=== PATIENT | female | born 1945 | race Caucasian/White ===

== ENCOUNTER 2018-05-21 06:09 | Inpatient (IN) | payer OTHER, SELFPAY ==
[2018-05-15 13:58] VITALS: BMI 29.7
[2018-05-21] VITALS (13 sets, daily range): BP systolic 93–256; BP diastolic 45–98; PULSE 57–90; RESP 15–19; TEMP 36.3–36.9; O2SAT 97–99; BMI 29.7
--- NOTE | 2018-05-21 06:00 | DI.RAD.S_ITS ---
PROCEDURE: XR KNEE LT 1TO2V INDICATIONS: prosthesis placement TECHNIQUE: 2 view(s) of the knee acquired. COMPARISON: None. FINDINGS: Bones: Patient is status post knee joint arthroplasty. Hardware components are in expected positions. Visualized bony structures are intact. Soft tissues: Overlying postoperative changes are noted. IMPRESSION: Normal postoperative examination. Dictated by: Ace Valdez M.D. on 05/21/2018 at 9:44 Approved by: Ace Valdez M.D. on 05/21/2018 at 9:44
[2018-05-21] MEDS: ACETAMINOPHEN 325 MG TABLET 975 MG PO (06:46)
[2018-05-21] MEDS: CELECOXIB 200 MG CAPSULE PO (06:46)
[2018-05-21] MEDS: PREGABALIN 75 MG CAPSULE PO (06:46)
[2018-05-21] MEDS: LACTATED RINGERS 1,000 ML 42 ML IV (07:25)
--- NOTE | 2018-05-21 07:44 | PM.PREOP ---
Pre-operative Note Interval Note Pre-op Check: Yes History & Physical Reviewed by Physician and Yes Exam Performed Changes: No
--- NOTE | 2018-05-21 07:44 | PM.OP.1 ---
Operative Date/Time/Diagnoses Date of procedure: 05/21/18 Time of procedure: 09:30 Pre-op diagnosis: Left knee osteoarthritis Post-op diagnosis: same Procedure & Clinicians Procedure: Left total knee replacement Same procedure as scheduled: Yes Indications: The patient has had progressively worsening left knee pain with radiographic changes consistent with arthritis. Non-operative management has failed and the patient has requested total knee replacement. The risks, benefits and alternatives to surgery were discussed with the patient prior to proceeding. Risks discussed included, but were not limited to, failure to relieve pain, stiffness, infection, nerve damage, deep venous thrombosis, pulmonary embolism, stroke, coma, heart attack, permanent paralysis and , as well as the potential need for eventual revision of the prosthetic. Surgeon: Bernard Sen Forest Pathology Teacher: Zoie Meade Click Yes if Unassisted: No Anesthesia Type: General, Spinal and Local Operative Notes Findings: Severe osteoarthritis, worst in the medial compartment significant in the patellofemoral joint. Closure Type: primary Specimen(s): none sent Implants & Drains: Implants used in this procedure were manufactured by the [employer] and included the BCS II Journey total knee replacement with a size 5 left cobalt chromium femoral component, 4 left non porous tibial base plate, a 10 mm cross-linked polyethylene tibial insert and a 35 mm oval Mimi II patellar component. Applied: implant(s) Estimated Blood Loss (mL): 50 Blood products transfused: none Tourniquet time (min): 51 Procedure in detail: The patient was seen in the pre-operative area, where the left knee was identified as the operative site and this was marked with my initials. The patient received pre-operative antibiotics, and was taken to the operating room and placed on the operative table in the supine position. After satisfactory anesthesia, a time study technologist out? was performed. The left leg was encircled with a tourniquet about the proximal thigh, and the leg was prepared from the toes to the tourniquet with ChloroPrep in the usual fashion and draped through sterile drapes. The leg was elevated and exsanguinated with Eschmark bandage and the tourniquet inflated to 250 mmHg pressure. The knee was approached through an approximately 18 cm incision centered over the patella and carried into the knee through a medial parapatellar arthrotomy. The anterior osteophytes and soft tissues were removed. The rotational landmarks of Ebony's line and the transepicondylar axis were marked on the femur with electrocautery, and intramedullary guide holes for the femur and tibia were created. The distal femoral cut was made in 6 degrees of valgus using the intramedullary guide at the primary cut setting. The proximal tibial cut was then made using the intramedullary guide, taking 9 mm of bone off the less involved side. The extension gap was checked and the rotation of the femoral component confirmed with the gap balancing blocks. The anterior, posterior and chamfer cuts were then made. The posterior osteophytes and soft tissues were then removed. The posterior capsule was injected with part of a mixture of 60 ml 0.25% Marcaine mixed with 20 ml Exparel and 4 mg of morphine for post-operative pain control. The remainder of this mixture was injected into the capsule and subcutaneous tissues during cement curing. The tibia was prepared with the rotation set by an extra medullary guide. Trial tibial and femoral components were then placed and the intercondylar notch cut through the femoral trial. Range of motion was 0-130?, with good stability throughout the range. The patella was then cut to accommodate the patellar prosthetic. There was no need for a lateral release. The trials were then removed, and the femoral hole plugged with a bone plug. The bone was prepared with pulsatile lavage, and dried with a sponge. Cement was applied and the final prosthetics placed. Excess cement was removed during and after cement curing. After confirming there was no extruded cement posteriorly, the final tibial insert was placed. The knee was copiously irrigated and the tourniquet deflated. Hemostasis was obtained. The capsule was closed with interrupted # 2 polyester sutures. The subcutaneous layer was closed with 3-0 Vicryl, and the skin with a running 3-0 V-Lock suture and SteriStrips. An Aquacel Ag dressing was applied and the patient was taken to recovery having tolerated the procedure well. Complications: none Condition: stable Disposition: PACU Plan for aftercare: The patient will be maintained on a standard total knee replacement protocol with weight bearing as tolerated. The patient will receive aspirin and sequential compression devices for DVT prophylaxis. The patient will be discharged home when safe for the home environment.
--- NOTE | 2018-05-21 08:36 | SUR.OPER ---
Supine on padded OR bed. Pillow under head, arms secured on padded armboards <90 degree abduction. Safety belt across torso. Non-operative leg secured with tape over blanket over lower leg. Operative leg secured in DeMayo/Feliciano positioner. Foam padded brace at thigh of operative leg.
[2018-05-21] MEDS: BUPIVACAINE 0.25% W/ EPI VIAL 50 ML INJ (08:40)
[2018-05-21] MEDS: BUPIVACAINE LIPOSOME 266 MG/20 ML VIAL INJ (08:41)
[2018-05-21] MEDS: MORPHINE 4 MG/ML INJ INJ (08:43)
[2018-05-21] MEDS: CEFAZOLIN 1 GM VIAL IV (09:02)
--- NOTE | 2018-05-21 09:04 | SUR.OPER ---
2 GRAMS ANCEF INFUSED AT 0820
--- NOTE | 2018-05-21 10:27 | SUR.PHASEI ---
Pt. spinal effect is at T-11 at this time, not able to move legs and feet at this time, this was reported to acute care RN (Stacy)
[2018-05-21] MEDS: LACTATED RINGERS 1,000 ML 125 ML IV ×2 (12:08→19:25)
[2018-05-21] MEDS: OXYCODONE IR 5 MG TABLET PO ×4 (12:11→23:58)
--- NOTE | 2018-05-21 12:19 | PC.NURSE ---
Addendum entered by Michelle David R.N. 05/21/18 14:53: pt is resting comfortably at this time with eyes closed, no s/sx of distress, oxygen 97% RA, respirations are equal and unlabored. Original Note: Addendum entered by Michelle David R.N. 05/21/18 13:59: called spoke with dr Sen in regards to pt elevated b/p received VTO to give tonights lisinopril po now. MARS updated Original Note: Day shift pt arrived to floor via bed from PACU at 1035. A&O x3 able to make needs known. has cori wrap to left knee that is CDI, left foot is warm to touch. strong pedal pulse. b/p elevated md aware, on arrival 181/90 tele on and NSR rates 60's, denies chest pain and SOB oxygen sats 100%RA, lung sounds are clear. no parsons or drains. on arrival pt not able to wiggle toes and numb from hips down at 1220 pt reports pain is increasing 2/10 medicated per emar, able to wiggle toes and feel touch. oriented to room and call light. denies nausea and tolerating diet. IVF infusing per order. Call light within reach and bed alarm for safety.
--- NOTE | 2018-05-21 13:15 | CM.DANOTE ---
Patient is a 72 year old female who was admitted on 05/21/18 for Total Left Knee Arthro. Pt has [facility] for insurance and her PCP is Dr. Tello. EMR was reviewed. Per RN, pt admitted this morning and had surgery and just recently got to the floor. SW met bedside with pt and spouse and explained role and they confirmed that they live at home in [place] and are typically Independent with ADL's at baseline. Pt denies any DPOA and SW explained the purpose of DPOA and offered the brochure and pwk and spouse and pt will discuss and likely complete. Pt states when she had previous surgery for another joint she ended up discharging home with HH but cannot remember the HH agency. Preference is to d/c home with supportive spouse but waiting for PT/OT eval and recommendations. Plan: SW to follow after PT/OT eval and d/c recommendations to determine if pt will be safe for d/c home with spouse when medically stable and any further identified discharge planning needs. CHIARA Melendez Discharge Planning/Care Management CM Discharge Assessment Start: 05/21/18 13:14 Freq: Status: Active Protocol: Document 05/21/18 13:14 BF (Rec: 05/21/18 13:15 BF [id number]) Discharge Planning Assessment Assigned Monitoring Coordinator CHIARA Perry DPOA/Assigned Designee Name none Advance Directives? Yes Advance Directives on File No History Provided By Patient Significant Other Medical Record Has Patient been admitted in last 30 No days? Prior Living Arrangements House Household Members spouse children Type of transporation used prior to Drives own vehicle admit Comment Patient resides at home in [place] with her and is Independent at baseline Independent with ADL's Yes Is patient alert and oriented? Yes Caregiver for Another No Community Services used prior to Physical Therapy admission: Comment Waiting for PT/OT eval and recommendations Discharge Plan Home Transportation Arrangement Spouse is bedside and can provide transport at d/c. Whiteboard Updated in Patient Room with Yes name and ext. # of Monitoring Coordinator Review Status In Process Please Provide Date Initial DC 05/21/18 Assessment Was Performed Next Review Type Continued Stay Review Pre-Anesthesia Assessment Start: 05/15/18 13:58 Freq: Status: Active Protocol: Document 05/15/18 13:58 CAB (Rec: 05/15/18 14:35 CAB [id number]) Pre-Anesthesia Assessment Patient Information Reviewed Via Phone Assessment Assessment Completed With Patient Lab Results BMP/CMP CBC EKG Comment Outside labs/EKG to med records to be scanned to chart Primary Care Provider Elena Bales Medical Clearance Received Yes Seen Specialist in Last 12 Months Yes Specialist Seen Orthopedist Urologist Comment PCP note 05/15/18 to med records to be scanned to chart Primary Language Stateless Vacuum Truck Driver Required No Height 162.56 cm Weight 78.471 kg Body Mass Index (BMI) 29.7 Hearing Ability Normal Visual Assist Magnifying Glass Dentition Type Teeth, Natural Present Teeth, Missing Barriers to Learning None Other Aids No Hx Anesthesia Reactions No Hx Family Anesthesia Reaction No Hx Malignant Hyperthermia No Hx Blood Transfusions No Anesthesia Review Requested No Junior Web Designer No alcohol intake current alcohol intake frequency a few times a month Smoking Status Former smoker Tobacco type cigarettes how long ago did patient quit smoking Quit 20 years ago Substance Use Type does not use Pain Present Pain Reported Musculoskeletal Symptoms Abnormal Gait Difficulty Walking Joint Pain Muscle Weakness History of Falling (Recent or History of No ) Patient is completely paralyzed or No completely immobile Gait/Transferring Weak Mental Status Oriented to own ability Is patient on oxygen? No Does patient have BELL/SOB No Hx Sleep Apnea No Currently Taking a Beta Jose A Yes: Metoprolol Can You Climb a Flight of Stairs Without Yes SOB Hx Chest Pain No Hx SOB No Hx Syncope or Dizziness No Anti-Coagulant Therapy No Has a Oriental Medicine Practitioner No Cardiac Testing No Hx Pacemaker/ICD No Pacemaker Rep Required? No Cardiac Clearance Received Not Applicable Diet Type At Home Regular dysphagia No Bladder Pattern Incontinent, Stress Nocturia Urinary Catheter Present No Hx Urinary Self Catheterization No Diabetes No Patient No Lactating No Hx Drug Resistant Organism No Presence of External or Internal Medical No Devices Have you traveled outside the [facility] in the last 30 days? Marital Status Lives With spouse children Prior Living Arrangements House Number of Floors (Floors) Two Floors Number of Stairs To Enter/Railing? 5 stairs, no railings Support System Child/Children Spouse Does the Patient Have Assistance After Yes Surgery Patient Discharge Plan Description Return Home Comment Pt not advised on length of stay per surgeon's office Feels Safe in Current Environment Yes Been Physically Hurt or Threatened By a No Person in Current Environment Do you have thoughts of harming yourself None or others? Are you currently considering suicide? No Do you have a plan to hurt yourself or No Plan others? Do You Have Any Spiritual Beliefs That No May Affect Your HC Choices? Do You Have Any Cultural Practices That No May Affect Your HC Choices? Spiritual Referral None Who Can We Speak to About Patient's Care family, friends Identifying Code for Release of Patient Ed Information Health Care Proxy/Next of Kin Emeka () Health Care Proxy Emergency Contact Name Emeka () Emergency Contact Advance Directives? No: Declines further information Power of Bridge Design Engineer No PAC Instructions Do not shave/clip surgical site Durable medical equipment Medications to take/avoid Nasal antibiotic No ETOH/petroleum product on skin DOS NPO Post-op transportation Pre-surgical wash Sturdy shoes/comfortable clothes Do not bring valuables and remove jewelry
--- NOTE | 2018-05-21 13:30 | PT.IPTN ---
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) Bilateral primary osteoarthritis of knee (05/21/18) Surgery Performed Operation Date: 05/21/18 07:45 Actual Procedures p Total Knee Arthroplasty(Left) - Bernard Sen MD Physical Therapy Treatment Note M3 PT-IP Subjective Start: 05/21/18 16:18 Freq: NEEDED Status: Active Protocol: Document 05/21/18 13:30 (Rec: 05/21/18 16:21 [id number]) Subjective Physical Therapy Visit Type Type Treatment Note Notes Unable to work with pt due to BP in contraindicated ranges. BP 190/127; 205/94 when retested. Nurse notified and pt told we PT will check on her again. PLOF obtained.
[2018-05-21] MEDS: LISINOPRIL 10 MG TABLET PO (14:06)
--- NOTE | 2018-05-21 17:13 | PT.IPTN ---
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) Bilateral primary osteoarthritis of knee (05/21/18) Surgery Performed Operation Date: 05/21/18 07:45 Actual Procedures p Total Knee Arthroplasty(Left) - Bernard Sen MD Physical Therapy Treatment Note M3 PT-IP Subjective Start: 05/21/18 16:18 Freq: NEEDED Status: Active Protocol: Document 05/21/18 17:09 [email or web address] (Rec: 05/21/18 17:12 EA [id number]) Subjective Physical Therapy Visit Type Type Patient Refusal Notes Incomplete sensory to lower extremities with inability to bend and extend the knee upon checking at @ 1700. Patient is not ready for PT eval at this time. Pt agreeable to participate tomorrow morning.
[2018-05-21] MEDS: CEFAZOLIN 2 GM/100 ML FROZ.PIGGY IV ×2 (17:30→23:59)
[2018-05-21] MEDS: ASPIRIN EC 81 MG TABLET PO (20:17)
[2018-05-21] MEDS: DOCUSATE 100 MG CAPSULE PO (20:17)
[2018-05-21] MEDS: METOPROLOL IR 25 MG TABLET PO (20:17)
[2018-05-22] VITALS (9 sets, daily range): BP systolic 159–206; BP diastolic 54–104; PULSE 69–77; RESP 15–16; TEMP 36.6–36.9; O2SAT 97–99
[2018-05-22] MEDS: hydrOXYzine pamoate 25 MG CAPSULE PO ×3 (00:45→13:38)
[2018-05-22] MEDS: LACTATED RINGERS 1,000 ML 125 ML IV (02:51)
[2018-05-22] MEDS: OXYCODONE IR 5 MG TABLET PO ×5 (02:51→20:15)
[2018-05-22] MEDS: HYDROMORPHONE 0.5 MG INJ IV ×2 (04:34→10:39)
[2018-05-22 07:33] LABS: Hematocrit 36.9 % (36-46); Hemoglobin 12.1 g/dL (12.0-16.0)
--- NOTE | 2018-05-22 07:58 | P.PN_ITS ---
Subjective Date Patient Seen: 05/22/18 Time Patient Seen: 07:50 Interval history: The patient reports excellent pain control until about 5:00 a.m. in the morning. She then began having pain. She has having some difficulty lifting her left leg from the mattress. She reports that her blood pressure has been out of control since surgery. She states that recently she and her primary caregiver have been having difficulty with her blood pressure although they thought they had it under control. Exam Vital Signs (past 8 hours): - 05/22/18 00:34 05/22/18 04:00 05/22/18 05:28 Temperature 98.0 F 98.1 F Pulse Rate 77 72 69 Respiratory Rate 16 16 Blood Pressure 178/83 H 162/102 H 161/54 H Pulse Oximetry 99 98 05/22/18 05:30 Temperature Pulse Rate Respiratory Rate Blood Pressure Pulse Oximetry 98 Oxygen Delivery Method Room Air Oxygen Flow Rate 0 Narrative Exam Narrative: On physical examination the left leg wound is dressed with no drainage on the bandage. Calf is soft. Light touch and motion are intact in the left lower extremity. Objective Labs Result Diagrams: 05/22/18 07:23 Labs: Laboratory Results - last 24 hr 05/22/18 07:23 Hgb 12.1 Hct 36.9 Radiographs reveal a well-positioned BCS II total knee replacement on the left. Assessment & Plan Post-op Postoperative Procedures Operation Date: 05/21/18 07:45 Actual Procedures Side Surgeon p Total Knee Arthroplasty Left Bernard Sen MD Postoperative day: 1 Postoperative status: doing well, marginal pain control, anemia and other ( Labile hypertension) Postoperative status narrative: The patient is stable postoperative day 1. She has pre-existing hypertension which has been problematic postoperatively. This did not allow her to get up with physical therapy yesterday per physical therapy guidelines. She has a mild, anticipated post hemorrhagic anemia. Postoperative plan: routine post-op care, ambulate and other (Monitor hypertension) Postoperative plan narrative: She has been placed on her pre operative hypertensive regimen. I do not plan on additional interventions for hypertension at least currently. I have recommended that she keep track of her blood pressure and follow up closely with her primary caregiver as an outpatient. We will continue physical therapy and she may be able to go home tomorrow. Time Spent With Patient less than 15 minutes Quality VTE Deep Vein Thrombosis/Pulmonary Embolism Present on Admission: No
[2018-05-22] MEDS: hydroCHLOROthiazide 12.5 MG CAPSULE PO (09:47)
[2018-05-22] MEDS: DOCUSATE 100 MG CAPSULE PO ×2 (09:47→20:13)
[2018-05-22] MEDS: ASPIRIN EC 81 MG TABLET PO ×2 (09:47→20:13)
[2018-05-22] MEDS: METOPROLOL IR 25 MG TABLET PO ×2 (09:48→20:15)
[2018-05-22] MEDS: MELOXICAM 7.5 MG TABLET 15 MG PO (09:48)
[2018-05-22] MEDS: ONDANSETRON 4 MG/2 ML INJ IV (10:48)
--- NOTE | 2018-05-22 13:45 | PT.IIE ---
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) Bilateral primary osteoarthritis of knee (05/21/18) Surgery Performed Operation Date: 05/21/18 07:45 Actual Procedures p Total Knee Arthroplasty(Left) - Bernard Sen MD Surgical History (Last Reviewed 05/21/18 @ 16:49 by Jey Rice, PT, DC) History of arthroplasty of right knee (Acute) Hx of abdominal surgery (Acute) Medical History (Last Updated 05/15/18 @ 14:14 by Kelin Shipley RN) Cyst (Acute ~10/2017) HTN (hypertension) (Acute) Hyperlipidemia (Acute) Myocardial infarction (Acute ~1982) Physical Therapy Inpatient Evaluation/Re-Eval M1 PT/OT-IP Prior Functional Status Start: 05/21/18 16:18 Freq: NEEDED Status: Active Protocol: Document 05/22/18 10:50 RS (Rec: 05/22/18 13:45 RS [email or web address]) Medical Review Prior Functional Status Medical History Reviewed Yes Communication No deficits noted. Mobility and Gait Previously ambulates independently no AD up to 15 mins. Pt leans on shopping cart to complete shopping. All other mobililites are stated as independent including driving and self care. Social History Household Members spouse Living Arrangements House Number of Floors (Floors) One Floor Number of Stairs To Enter/Railing? 3 no rail Home Environment Standard Height Toilet Tub/Shower Home Equipment Front Wheel Walker Straight Cane Shower Seat with Backrest Hand Held Shower Grab Bars In Shower Employment Status Retired Additional Social History Comment Pt lives with Emeka who can assist 24/7 at d/c M2 PT-IP Current Condition Start: 05/21/18 16:18 Freq: NEEDED Status: Active Protocol: Document 05/22/18 10:50 RS (Rec: 05/22/18 13:45 RS [email or web address]) Physical Therapy Current Condition Current Condition Evaluation Date 05/22/18 Treatment Diagnosis L TKA; difficulty walking Onset Date 05/21/2018 Weight Bearing Status Weight Bearing Status Weight Bear as Tolerated M3 PT-IP Subjective Start: 05/21/18 16:18 Freq: NEEDED Status: Active Protocol: Document 05/22/18 09:50 (Rec: 05/22/18 13:04 [email or web address]) Subjective Physical Therapy Visit Type Type Initial Evaluation Visit Start Time 09:50 Visit Stop Time 10:50 Total Visit Minutes 60 Notes Split session. PLOF gathered yesterday, pt BP contraindicated mobilizing with PT. Session continued today. In/Out times reflect total skilled time spent with pt. Number of ASSEMBLER LATCHES AND SPRINGS Visits 0 Physical Therapy Visit Comments Patient Comments Pt agreeable to mobilize with PT. Patient Goals Pt planning to d/c home with who can assist 23/01 Therapy Pain Assessment Pain When Pain Assessed During Mobility Pain Present Pain Present Pain Reported Location Left Knee Scale Used 3/10 resting. 8/10 with bed mobility. Pain Behaviors Calling Out Crying Facial Grimacing Guarding Holding Area Wincing Pain Management Techniques Apply Cold Distraction Modification of Treatment Re-positioning Timing of Activity with Medications M4 PT-IP Mobility and Gait Start: 05/21/18 16:18 Freq: NEEDED Status: Active Protocol: Document 05/22/18 10:50 RS (Rec: 05/22/18 13:45 RS [email or web address]) Gait Assessment Comments Gait Comments not appropriate to assess this session Stair Climbing Assessment Comments Stair Climbing Comments not appropriate to assess this session M5 PT-IP Objective Assessments Start: 05/21/18 16:18 Freq: NEEDED Status: Active Protocol: Document 05/22/18 09:50 (Rec: 05/22/18 13:04 [id number]) Orientation Orientation/Cognition Level of Alertness Alert Orientation Name Age Birthday Month Date Year Day of Week Place Situation Language Function Ability No Deficits Noted Safety Awareness Decreased Safety Awareness Gross Range of Motion Lower Extremity ROM Assessment Left Impaired Impairments L knee flexion ~30 degrees and 8/10 pain. Extension lacks 5 degress from neutral. Strength Lower Extremity Strength Assessment Left Impaired Hip 2 Knee 3- Ankle 5 Comments Strength Comments R LE 4+/5 grossly. Sensation Assessment Sensation Light Touch Intact M6 PT-IP Treatment Start: 05/21/18 16:18 Freq: NEEDED Status: Active Protocol: Document 05/22/18 09:50 (Rec: 05/22/18 13:04 [email or web address]) Physical Therapy Treatment Exercises Exercises Ankle Pumps Quad Sets Heel Slides Straight Leg Raises Short Arc Quads Passive Knee Extension Hang Seated Knee Flexion/Extension Education Education Provided Precautions Weight Bearing Status Post-Op Packet Safety Other Treatments Other Treatment Performed Performed all post op exercises with pt. Caregiver/ spouse training in assisting pt with post op exercises as she is requiring Active assistance with exercises. He demonstrated safe assistance of the pt, but was unable to correct his body mechanics with max cues. AAROME performed for L knee flexion x10. M7 PT-IP Assessment and Plan Start: 05/21/18 16:18 Freq: NEEDED Status: Active Protocol: Document 05/22/18 09:50 (Rec: 05/22/18 13:04 [email or web address]) PT Summary Assessment and Plan Potential Rehabilitation Potential Fair Summary Impairments Pain ROM Strength Balance Bed Mobility Transfers Gait Activity Tolerance Progress Towards Goals Slow Progress due to Pain Assessment Summary Pt s/p L TKA with difficulty walking and high levels of pain. She was able to complete bed mobility with maxAx1 and tolerated sitting EOB only a few seconds and reporting 8/10 during mobility . Nursing aware of pt pain status. At this time the pt is not safe for d/c home due to significantly impaired mobilities. Pending pt progress, SNF may be appropriate for the pt as she is needing high levels of assist and is significantly impaired compared to her baseline status. Ongoing assessment of pt mobilites needed. I do however anticipate the pt mobility status improving once her pain is well controlled. Goals Bed Mobility Goal Standby Assistance Transfer Goal Standby Assistance Front Wheeled Walker Gait Goal Standby Assistance Front Wheel Walker Gait Distance 100 Other Goals up/down 3 steps no rails using SPC and Brooke. Days to Meet Goals 3 Frequency of Treatment Frequency Of Treatment Twice a Day Treatment Plan Physical Therapy Treatment Plan Bed Mobility Training Transfer Training Gait Training Therapeutic Exercise Balance Retraining Post Op Education Discharge Planning Hot or Cold Pack Neuromuscular Re-ed Coordination Retraining Manual Therapy Other Recommendations and Next Treatment ambulation and stair climbing Focus as pt is able. Recommendations To Nursing Amount of Assist Needed 1 Person Assist Discharge Recommendations PT Discharge Recommendations Home with 24/7 Assist Outpatient PT Other Discharge Recommendations SNF vs Home with 24/7 assist and OP PT
--- NOTE | 2018-05-22 15:26 | PT.OTN ---
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) Bilateral primary osteoarthritis of knee (05/21/18)
[2018-05-22] MEDS: LISINOPRIL 10 MG TABLET PO (20:14)
[2018-05-22] MEDS: OXYCODONE IR 10 MG TABLET PO (20:17)
[2018-05-23] VITALS (7 sets, daily range): BP systolic 149–204; BP diastolic 42–123; PULSE 76–90; RESP 16–20; TEMP 36.4–36.8; O2SAT 93–98
[2018-05-23] MEDS: SODIUM CHLORIDE 0.9% FLUSH 10 ML IV ×3 (00:49→21:30)
[2018-05-23] MEDS: OXYCODONE IR 10 MG TABLET PO ×3 (00:54→11:37)
--- NOTE | 2018-05-23 07:19 | PM.PNPO.1 ---
Subjective Date Patient Seen: 05/23/18 Time Patient Seen: 07:19 Interval history: The patient reports she is feeling better today. She has however not ambulated outside her hospital room. Exam Vital Signs (past 8 hours): - 05/23/18 00:15 05/23/18 03:56 Temperature 98.3 F 98.2 F Pulse Rate 77 83 Respiratory Rate 16 16 Blood Pressure 198/92 H 201/78 H Pulse Oximetry 94 95 Oxygen Delivery Method Room Air Oxygen Flow Rate 0 Narrative Exam Narrative: Left knee wound is dressed with no drainage on the bandage. Calf is soft. Light touch and motion are intact in the left lower extremity. Objective Labs Result Diagrams: 05/22/18 07:23 Labs: Laboratory Results - last 24 hr 05/22/18 07:23 Hgb 12.1 Hct 36.9 Assessment & Plan Post-op Postoperative Procedures Operation Date: 05/21/18 07:45 Actual Procedures Side Surgeon p Total Knee Arthroplasty Left Bernard eSn MD Postoperative day: 2 Postoperative status: doing well and anemia Postoperative status narrative: The patient is improving postoperatively but has not made enough progress with physical therapy for discharge as of yet. Postoperative plan: routine post-op care Postoperative plan narrative: We will continue physical therapy. It is likely she will be discharged in the morning tomorrow. If she makes excellent progress in physical therapy today we may move that discharge up until this afternoon. Time Spent With Patient less than 15 minutes Quality VTE Deep Vein Thrombosis/Pulmonary Embolism Present on Admission: No
[2018-05-23] MEDS: ASPIRIN EC 81 MG TABLET PO ×2 (08:26→21:30)
[2018-05-23] MEDS: hydroCHLOROthiazide 12.5 MG CAPSULE PO (08:27)
[2018-05-23] MEDS: DOCUSATE 100 MG CAPSULE PO ×2 (08:27→21:30)
[2018-05-23] MEDS: METOPROLOL IR 25 MG TABLET PO ×2 (08:27→21:30)
[2018-05-23] MEDS: MELOXICAM 7.5 MG TABLET 15 MG PO (08:28)
--- NOTE | 2018-05-23 10:29 | PT.IPTN ---
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) Bilateral primary osteoarthritis of knee (05/21/18) Surgery Performed Operation Date: 05/21/18 07:45 Actual Procedures p Total Knee Arthroplasty(Left) - Bernard Sen MD Physical Therapy Treatment Note M2 PT-IP Current Condition Start: 05/21/18 16:18 Freq: NEEDED Status: Active Protocol: Document 05/22/18 10:50 RS (Rec: 05/22/18 13:45 RS [email or web address]) Physical Therapy Current Condition Current Condition Evaluation Date 05/22/18 Treatment Diagnosis L TKA; difficulty walking Onset Date 05/21/2018 Weight Bearing Status Weight Bearing Status Weight Bear as Tolerated M3 PT-IP Subjective Start: 05/21/18 16:18 Freq: NEEDED Status: Active Protocol: Document 05/23/18 10:22 SA (Rec: 05/23/18 10:29 SA [id number]) Subjective Physical Therapy Visit Type Type Treatment Note Visit Start Time 08:44 Visit Stop Time 09:15 Total Visit Minutes 31 Number of OCCUPATIONAL THERAPY TECHNICIAN Visits 2 Physical Therapy Visit Comments Patient Comments Pt up in bed this AM and agreeable to PT. not present. Therapy Pain Assessment Pain When Pain Assessed During Mobility Pain Present Pain Present Pain Reported Location Left Knee Intensity 3 Scale Used Numeric (1 - 10) Pain Management Techniques Apply Cold Modification of Treatment Re-positioning Timing of Activity with Medications M4 PT-IP Mobility and Gait Start: 05/21/18 16:18 Freq: NEEDED Status: Active Protocol: Document 05/23/18 10:22 SA (Rec: 05/23/18 10:29 SA [id number]) PT-Bed Mobility Assessment Rolling Type of Rolling Roll to Right Level of Assist Minimal Assistance Supine to Sit Supine to Sit Minimal Assistance Sit to Supine Sit to Supine Minimal Assistance Scooting Scooting to Edge of Bed Minimal Assistance Scooting Up and Down in Bed Minimal Assistance PT-Transfer Assessment Sit to and From Stand Sit to and from Stand Standby Assistance Equipment Transfer Assistive Device Gait Belt Front Wheeled Walker Orthotic/Prosthetic Devices or Brace: No Transfers Transfer Destination Bed Toilet Transfer Technique Stand Step Pivot Transfer Ability Level of Assist Contact Guard Assistance Comments Mobility Comments Pt continues to limit WBing through LLE with overuse of UEs and flexed posture. Cues to correct and increased LLE WBing. Gait Assessment Gait Gait Assistance Required: Contact Guard Assist Distance (Feet) 45 Able to Maintain Weight Bearing Status Yes During Gait Assistive Devices Assistive Device Gait Belt Front Wheeled Walker Orthotic/Prosthetic Devices or Brace: No Gait Deviations General Gait Pattern Decreased Stride Length Decreased Feet Clearance Flexed Trunk Step-to Gait Factors Limiting Gait Function Factors Limiting Gait Function Decreased Activity Tolerance Decreased Strength Limited Range of Motion Pain Comments Gait Comments VErbal cues needed to correct posture, increase WBing through LLE and RLE step length. Pt still very gaurded. Stair Climbing Assessment Comments Stair Climbing Comments Unable to attempt stairs this AM to try this afternoon. M5 PT-IP Objective Assessments Start: 05/21/18 16:18 Freq: NEEDED Status: Active Protocol: Document 05/22/18 09:50 (Rec: 05/22/18 13:04 [id number]) Orientation Orientation/Cognition Level of Alertness Alert Orientation Name Age Birthday Month Date Year Day of Week Place Situation Language Function Ability No Deficits Noted Safety Awareness Decreased Safety Awareness Gross Range of Motion Lower Extremity ROM Assessment Left Impaired Impairments L knee flexion ~30 degrees and 8/10 pain. Extension lacks 5 degress from neutral. Strength Lower Extremity Strength Assessment Left Impaired Hip 2 Knee 3- Ankle 5 Comments Strength Comments R LE 4+/5 grossly. Sensation Assessment Sensation Light Touch Intact M6 PT-IP Treatment Start: 05/21/18 16:18 Freq: NEEDED Status: Active Protocol: Document 05/23/18 10:22 SA (Rec: 05/23/18 10:29 [id number]) Physical Therapy Treatment Exercises Exercises Ankle Pumps Heel Slides Seated Knee Flexion/Extension Education Education Provided Precautions Weight Bearing Status Post-Op Packet Safety Other Treatments Other Treatment Performed Stood at sink to wash hands, toilet txs with use of FWW and grab bar. M7 PT-IP Assessment and Plan Start: 05/21/18 16:18 Freq: NEEDED Status: Active Protocol: Document 05/23/18 10:22 SA (Rec: 05/23/18 10:29 [id number]) PT Summary Assessment and Plan Summary Progress Towards Goals Slow Progress due to Pain Assessment Summary Pt still demonstrates pain avoidance behaviors and needs increased time to perform tasks. Frequency of Treatment Frequency Of Treatment Twice a Day Recommendations To Nursing Amount of Assist Needed 1 Person Assist Discharge Recommendations PT Discharge Recommendations Home with 24/7 Assist Outpatient PT Other Discharge Recommendations Home with 24 hour assist.
--- NOTE | 2018-05-23 15:20 | PT.IPTN ---
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) Bilateral primary osteoarthritis of knee (05/21/18) Surgery Performed Operation Date: 05/21/18 07:45 Actual Procedures p Total Knee Arthroplasty(Left) - Bernard Sen MD Physical Therapy Treatment Note M2 PT-IP Current Condition Start: 05/21/18 16:18 Freq: NEEDED Status: Active Protocol: Document 05/22/18 10:50 RS (Rec: 05/22/18 13:45 RS [email or web address]) Physical Therapy Current Condition Current Condition Evaluation Date 05/22/18 Treatment Diagnosis L TKA; difficulty walking Onset Date 05/21/2018 Weight Bearing Status Weight Bearing Status Weight Bear as Tolerated M3 PT-IP Subjective Start: 05/21/18 16:18 Freq: NEEDED Status: Active Protocol: Document 05/23/18 15:06 SA (Rec: 05/23/18 15:20 SA [email or web address]) Subjective Physical Therapy Visit Type Type Treatment Note Visit Start Time 13:55 Visit Stop Time 14:25 Total Visit Minutes 30 Number of STRAWHAT INSPECTOR AND PACKER Visits 3 Physical Therapy Visit Comments Patient Comments Pt agreeable to PT this afternoon. present for therapy. Patient Goals Pt planning to d/c home with who can assist 23/01 Therapy Pain Assessment Pain When Pain Assessed During Mobility Pain Present Pain Present Pain Reported Location Left Knee Intensity 2 Scale Used Numeric (1 - 10) Pain Management Techniques Apply Cold Modification of Treatment Re-positioning Timing of Activity with Medications M4 PT-IP Mobility and Gait Start: 05/21/18 16:18 Freq: NEEDED Status: Active Protocol: Document 05/23/18 15:06 SA (Rec: 05/23/18 15:20 SA [email or web address]) PT-Bed Mobility Assessment Rolling Type of Rolling Roll to Right Level of Assist Contact Guard Assistance Supine to Sit Supine to Sit Minimal Assistance Sit to Supine Sit to Supine Minimal Assistance Scooting Scooting to Edge of Bed Contact Guard Assistance Scooting Up and Down in Bed Contact Guard Assistance PT-Transfer Assessment Sit to and From Stand Sit to and from Stand Standby Assistance Equipment Transfer Assistive Device Gait Belt Front Wheeled Walker Orthotic/Prosthetic Devices or Brace: No Transfers Transfer Destination Bed Transfer Technique Stand Step Pivot Transfer Ability Level of Assist Standby Assistance Comments Mobility Comments Continued cues for decreasing WBing through UEs, upright posture and increased WBing on LLE. Gait Assessment Gait Gait Assistance Required: Contact Guard Assist Distance (Feet) 150 Able to Maintain Weight Bearing Status Yes During Gait Assistive Devices Assistive Device Gait Belt Front Wheeled Walker Orthotic/Prosthetic Devices or Brace: No Gait Deviations General Gait Pattern Decreased Stride Length Decreased Feet Clearance Flexed Trunk Step-to Gait Factors Limiting Gait Function Factors Limiting Gait Function Decreased Activity Tolerance Decreased Strength Limited Range of Motion Pain Comments Gait Comments Increased gait distance and quality of gait but pt needs cues for correction of step length, WBing and posture. Stair Climbing Assessment Evaluation Level of Assist On Stairs Minimal Assistance Devices Stair Climbing Assistive Devices Left Railing Right Railing Technique/Endurance Stair Climbing Direction Ascend and Descend Stair Climbing Technique Step to Step Number of Steps Climbed 3 Query Text: Stair Climbing Set # Repetitions (reps) 1 Comments Stair Climbing Comments Pt very fearful of attempting stairs but willing to try, reports very low pain level with Min A. ambualtion. Max cues for safe technique. Step to gait pattern PT-Balance Assessment Comments Other Balance Tests/Deviations/Treatment Pt would benefit from : continued stair training to reduce anxiety with activity. M5 PT-IP Objective Assessments Start: 05/21/18 16:18 Freq: NEEDED Status: Active Protocol: Document 05/22/18 09:50 (Rec: 05/22/18 13:04 [id number]) Orientation Orientation/Cognition Level of Alertness Alert Orientation Name Age Birthday Month Date Year Day of Week Place Situation Language Function Ability No Deficits Noted Safety Awareness Decreased Safety Awareness Gross Range of Motion Lower Extremity ROM Assessment Left Impaired Impairments L knee flexion ~30 degrees and 8/10 pain. Extension lacks 5 degrees from neutral. Strength Lower Extremity Strength Assessment Left Impaired Hip 2 Knee 3- Ankle 5 Comments Strength Comments R LE 4+/5 grossly. Sensation Assessment Sensation Light Touch Intact M6 PT-IP Treatment Start: 05/21/18 16:18 Freq: NEEDED Status: Active Protocol: Document 05/23/18 15:06 SA (Rec: 05/23/18 15:20 SA [email or web address]) Physical Therapy Treatment Exercises Exercises Ankle Pumps Heel Slides Seated Knee Flexion/Extension Education Education Provided Precautions Weight Bearing Status Post-Op Packet Safety M7 PT-IP Assessment and Plan Start: 05/21/18 16:18 Freq: NEEDED Status: Active Protocol: Document 05/23/18 15:06 SA (Rec: 05/23/18 15:20 [email or web address]) PT Summary Assessment and Plan Summary Assessment Summary Pt reports low pain levels but demonstrates anticipatory pain behavior. Frequency of Treatment Frequency Of Treatment Twice a Day Recommendations To Nursing Amount of Assist Needed 1 Person Assist Discharge Recommendations PT Discharge Recommendations Home with 24/7 Assist Outpatient PT Other Discharge Recommendations Home with 24 hour assist.
[2018-05-23] MEDS: OXYCODONE IR 5 MG TABLET PO ×2 (18:10→22:00)
[2018-05-23] MEDS: LISINOPRIL 10 MG TABLET PO (21:30)
[2018-05-24 01:23] VITALS: BP 148/54; PULSE 77; RESP 18; TEMP 37; O2SAT 97
--- NOTE | 2018-05-24 04:11 | PC.NURSE ---
Pt is A and O x 4, VSS. Pt is able to sleep, denies pain and nausea. Voiding quantities sufficient clear yellow in bedpan. + BTs.
[2018-05-24 07:35] VITALS: BP 162/75; PULSE 77; RESP 16; TEMP 36.4; O2SAT 95
[2018-05-24] MEDS: OXYCODONE IR 10 MG TABLET PO ×2 (07:44→10:58)
--- NOTE | 2018-05-24 09:14 | PM.DS.1 ---
History of Present Illness Date Patient Seen: 05/24/18 Time Patient Seen: 09:15 Chief complaint: total knee arthroplasty left [id number] Narrative: History and physical exam for this patient are contained in a previously completed note. Please refer to that note for this information. Discharge Providers Date of admission: 05/21/18 06:09 Consults: 05/21/18 10:42 Consult to Discharge Planning Routine Comment: Consult to Physical Therapy Evaluate & Treat Comment: Physician Instructions: postop TKA protocol Discharge provider: Bernard Sen MD Discharge Date: 05/24/18 Summary Discharge Diagnosis: 1. Osteoarthritis of left knee 2. Mild, anticipated acute post hemorrhagic anemia 3. Hypertension Hospital Course: The patient was admitted to the hospital and taken directly to the operating room on May 21, 2018 where she underwent a left total knee replacement. Her postoperative course was marked by spikes of hypertension. She had previously been working with her primary caregiver to get her hypertension under control. This was monitored and her preoperative antihypertensive medications were continued. Eventually this improved somewhat. She has been instructed to follow up closely with her primary caregiver for additional hypertensive treatment. She made slow progress with physical therapy and by postoperative day 3 was ready for discharge home. Status at Discharge Cognitive/behavioral status at discharge: Baseline Functional status at discharge: uses cane/walker Overall status at discharge: patient is progressing back to baseline Time Spent with Patient Less than 30 minutes Exam Vital Signs (past 8 hours): - 05/24/18 01:23 Temperature 98.6 F Pulse Rate 77 Respiratory Rate 18 Blood Pressure 148/54 H Pulse Oximetry 97 Oxygen Delivery Method Room Air Oxygen Flow Rate 0 Narrative Exam Narrative: Left knee wound is dressed with no drainage on the bandage. Calf is soft. Light touch and motion are intact in the left lower extremity. Objective Labs Result Diagrams: 05/22/18 07:23 Discharge Plan Discharge Plan Patient Disposition: Home Discharge Med Rec/Prescriptions Prescriptions: New aspirin 81 mg Tablet,Delayed Release (Dr/Ec) 81 mg PO BID 42 Days Qty: 84 RF: 0 oxycodone 5 mg Tablet 5 mg PO Q3HR PRN (Reason: Pain, Moderate (4-6)) Qty: 60 RF: 0 hydroxyzine pamoate 25 mg Capsule 25 mg PO Q6HR PRN (Reason: Nausea) Qty: 40 RF: 0 Continue meloxicam 15 mg Tablet 15 mg PO DAILY RF: 0 lisinopril 10 mg Tablet 10 mg PO BEDTIME RF: 0 hydrochlorothiazide 12.5 mg Capsule 12.5 mg PO DAILY RF: 0 metoprolol tartrate 25 mg Tablet 25 mg PO BID RF: 0 Follow up/Referrals: Bernard Sen MD [Physician] - 2 Weeks (Also follow up with your primary caregiver to monitor your hypertension. ) Provider Discharge Instructions Diet: Diet as Tolerated and Regular Activity: Ambulate 5-10 minutes every hour while awake. You may weight bear as tolerated on your left lower extremity. Cold/Heat Therapy: Apply ice to the left knee for 15 min every hour as needed. Other treatments: Remove cori wrap 05/23/18. Leave aquacel dressing in place. You may shower with the deeper dressing in place. If the center strip of the deeper dressing is wet with water ordered saturated with blood please call the office to have it changed. Skin/Wound/Dressing Care Report to your healthcare provider any signs of infection, such as:: chills, fever, night sweats, increased pain and unusual drainage Visit Report/Discharge Packet Instructions: DI for Knee Replacement, DI for Constipation Discharge Data Attending Provider: Bernard Sen Admit Date/Time: 05/21/18 06:09 Quality VTE Deep Vein Thrombosis/Pulmonary Embolism Present on Admission: No
[2018-05-24] MEDS: MELOXICAM 7.5 MG TABLET 15 MG PO (09:21)
[2018-05-24] MEDS: METOPROLOL IR 25 MG TABLET PO (09:21)
[2018-05-24] MEDS: hydroCHLOROthiazide 12.5 MG CAPSULE PO (09:22)
[2018-05-24] MEDS: DOCUSATE 100 MG CAPSULE PO (09:22)
[2018-05-24] MEDS: ASPIRIN EC 81 MG TABLET PO (09:22)
--- NOTE | 2018-05-24 10:01 | CM.DPC ---
DCP/continued: Reviewed chart. Received notification that patient okay to d/c home today. Met with patient to confirm plan. Patient aware and agreeable. Important Message from Medicare signed at approximately 9:30AM. P: Home today. CHIARA Guzmán Discharge Planning/Care Management CM Discharge Assessment Start: 05/21/18 13:14 Freq: Status: Active Protocol: Document 05/21/18 13:14 BF (Rec: 05/21/18 13:15 BF [id number]) Discharge Planning Assessment Assigned Awning Frame MakerCHIARA Gutierrez DPOA/Assigned Designee Name none Advance Directives? Yes Advance Directives on File No History Provided By Patient Significant Other Medical Record Has Patient been admitted in last 30 No days? Prior Living Arrangements House Household Members spouse children Type of transporation used prior to Drives own vehicle admit Comment Patient resides at home in [place] with her and is Independent at baseline Independent with ADL's Yes Is patient alert and oriented? Yes Caregiver for Another No Community Services used prior to Physical Therapy admission: Comment Waiting for PT/OT eval and recommendations Discharge Plan Home Transportation Arrangement Spouse is bedside and can provide transport at d/c. Whiteboard Updated in Patient Room with Yes name and ext. # of Awning Frame Maker Review Status In Process Please Provide Date Initial DC 05/21/18 Assessment Was Performed Next Review Type Continued Stay Review Document 05/24/18 10:00 KJS (Rec: 05/24/18 10:01 [id number]) Discharge Planning Assessment Assigned Awning Frame MakerCHIARA Gutierrez DPOA/Assigned Designee Name none Advance Directives? Yes Advance Directives on File No History Provided By Patient Significant Other Medical Record Has Patient been admitted in last 30 No days? Prior Living Arrangements House Household Members spouse Type of transporation used prior to Drives own vehicle admit Comment Patient resides at home in [place] with her and is Independent at baseline Independent with ADL's Yes Is patient alert and oriented? Yes Caregiver for Another No Community Services used prior to Physical Therapy admission: Comment Waiting for PT/OT eval and recommendations Discharge Plan Home Transportation Arrangement Spouse is bedside and can provide transport at d/c. Whiteboard Updated in Patient Room with Yes name and ext. # of Awning Frame Maker Review Status In Process Please Provide Date Initial DC 05/21/18 Assessment Was Performed Next Review Type Continued Stay Review Pre-Anesthesia Assessment Start: 05/15/18 13:58 Freq: Status: Complete Protocol: Document 05/15/18 13:58 CAB (Rec: 05/15/18 14:35 CAB [id number]) Pre-Anesthesia Assessment Patient Information Reviewed Via Phone Assessment Assessment Completed With Patient Lab Results BMP/CMP CBC EKG Comment Outside labs/EKG to med records to be scanned to chart Primary Care Provider Elena Bales Medical Clearance Received Yes Seen Specialist in Last 12 Months Yes Specialist Seen Orthopedist Urologist Comment PCP note 05/15/18 to med records to be scanned to chart Primary Language [place] Securities Adviser Required No Height 162.56 cm Weight 78.471 kg Body Mass Index (BMI) 29.7 Hearing Ability Normal Visual Assist Magnifying Glass Dentition Type Teeth, Natural Present Teeth, Missing Barriers to Learning None Other Aids No Hx Anesthesia Reactions No Hx Family Anesthesia Reaction No Hx Malignant Hyperthermia No Hx Blood Transfusions No Anesthesia Review Requested No Search Engineer No alcohol intake current alcohol intake frequency a few times a month Smoking Status Former smoker Tobacco type cigarettes how long ago did patient quit smoking Quit 20 years ago Substance Use Type does not use Pain Present Pain Reported Musculoskeletal Symptoms Abnormal Gait Difficulty Walking Joint Pain Muscle Weakness History of Falling (Recent or History of No ) Patient is completely paralyzed or No completely immobile Gait/Transferring Weak Mental Status Oriented to own ability Is patient on oxygen? No Does patient have BELL/SOB No Hx Sleep Apnea No Currently Taking a Beta Jose A Yes: Metoprolol Can You Climb a Flight of Stairs Without Yes SOB Hx Chest Pain No Hx SOB No Hx Syncope or Dizziness No Anti-Coagulant Therapy No Has a Prekindergarten Teacher No Cardiac Testing No Hx Pacemaker/ICD No Pacemaker Rep Required? No Cardiac Clearance Received Not Applicable Diet Type At Home Regular dysphagia No Bladder Pattern Incontinent, Stress Nocturia Urinary Catheter Present No Hx Urinary Self Catheterization No Diabetes No Patient No Lactating No Hx Drug Resistant Organism No Presence of External or Internal Medical No Devices Have you traveled outside the [place] [facility] [place] in the last 30 days? Marital Status Lives With spouse children Prior Living Arrangements House Number of Floors (Floors) Two Floors Number of Stairs To Enter/Railing? 5 stairs, no railings Support System Child/Children Spouse Does the Patient Have Assistance After Yes Surgery Patient Discharge Plan Description Return Home Comment Pt not advised on length of stay per surgeon's office Feels Safe in Current Environment Yes Been Physically Hurt or Threatened By a No Person in Current Environment Do you have thoughts of harming yourself None or others? Are you currently considering suicide? No Do you have a plan to hurt yourself or No Plan others? Do You Have Any Spiritual Beliefs That No May Affect Your HC Choices? Do You Have Any Cultural Practices That No May Affect Your HC Choices? Spiritual Referral None Who Can We Speak to About Patient's Care family, friends Identifying Code for Release of Patient Ed Information Health Care Proxy/Next of Kin Emeka () Health Care Proxy Emergency Contact Name Emeka () Emergency Contact Advance Directives? No: Declines further information Power of Propagator Laborer No PAC Instructions Do not shave/clip surgical site Durable medical equipment Medications to take/avoid Nasal antibiotic No ETOH/petroleum product on skin DOS NPO Post-op transportation Pre-surgical wash Sturdy shoes/comfortable clothes Do not bring valuables and remove jewelry
--- NOTE | 2018-05-24 10:45 | PT.IPTN ---
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) Bilateral primary osteoarthritis of knee (05/21/18) Surgery Performed Operation Date: 05/21/18 07:45 Actual Procedures p Total Knee Arthroplasty(Left) - Bernard Sen MD Physical Therapy Treatment Note M2 PT-IP Current Condition Start: 05/21/18 16:18 Freq: NEEDED Status: Discharge Protocol: Document 05/22/18 10:50 RS (Rec: 05/22/18 13:45 RS [id number]) Physical Therapy Current Condition Current Condition Evaluation Date 05/22/18 Treatment Diagnosis L TKA; difficulty walking Onset Date 05/21/2018 Weight Bearing Status Weight Bearing Status Weight Bear as Tolerated M3 PT-IP Subjective Start: 05/21/18 16:18 Freq: NEEDED Status: Discharge Protocol: Document 05/24/18 12:18 [facility] (Rec: 05/24/18 12:24 [facility] [id number]) Subjective Physical Therapy Visit Type Type Treatment Note Visit Start Time 10:20 Visit Stop Time 10:45 Total Visit Minutes 30 Notes 5 addition min spent earlier in morning at 830 with edu on safety around pets Number of [employer] Visits 0 Physical Therapy Visit Comments Patient Comments Agreeable to PT. present Patient Goals Pt planning to d/c home with who can assist 23/01 Therapy Pain Assessment Pain When Pain Assessed During Mobility Pain Present Pain Present Pain Reported M4 PT-IP Mobility and Gait Start: 05/21/18 16:18 Freq: NEEDED Status: Discharge Protocol: Document 05/24/18 12:18 [facility] (Rec: 05/24/18 12:24 [facility] [id number]) PT-Transfer Assessment Sit to and From Stand Sit to and from Stand Standby Assistance Equipment Transfer Assistive Device Gait Belt Front Wheeled Walker Orthotic/Prosthetic Devices or Brace: No Comments Mobility Comments Pt stood from chair and W/C 2x each SBA to walk after Gait Assessment Gait Gait Assistance Required: Standby Assistance Distance (Feet) 125 Able to Maintain Weight Bearing Status Yes During Gait Assistive Devices Assistive Device Gait Belt Front Wheeled Walker Orthotic/Prosthetic Devices or Brace: No Gait Deviations General Gait Pattern Decreased Stride Length Decreased Feet Clearance Flexed Trunk Step-to Gait Factors Limiting Gait Function Factors Limiting Gait Function Decreased Activity Tolerance Decreased Strength Limited Range of Motion Pain Comments Gait Comments Pt amb about 90ft out of room then about 10ft to and 10ft from stairs then 15ft from w/c to BR all SBA with cuieng for posture. Stair Climbing Assessment Evaluation Level of Assist On Stairs Standby Assistance Devices Stair Climbing Assistive Devices Front Wheel Walker Technique/Endurance Stair Climbing Direction Ascend and Descend Stair Climbing Technique Step to Step Number of Steps Climbed 4 Query Text: Comments Stair Climbing Comments Pt ascended backwards with use of walker and holding walker with cueing from PT and fwd down with walker & stabilizing with cueing. M5 PT-IP Objective Assessments Start: 05/21/18 16:18 Freq: NEEDED Status: Discharge Protocol: Document 05/22/18 09:50 (Rec: 05/22/18 13:04 [id number]) Orientation Orientation/Cognition Level of Alertness Alert Orientation Name Age Birthday Month Date Year Day of Week Place Situation Language Function Ability No Deficits Noted Safety Awareness Decreased Safety Awareness Gross Range of Motion Lower Extremity ROM Assessment Left Impaired Impairments L knee flexion ~30 degrees and 8/10 pain. Extension lacks 5 degress from neutral. Strength Lower Extremity Strength Assessment Left Impaired Hip 2 Knee 3- Ankle 5 Comments Strength Comments R LE 4+/5 grossly. Sensation Assessment Sensation Light Touch Intact M6 PT-IP Treatment Start: 05/21/18 16:18 Freq: NEEDED Status: Discharge Protocol: Document 05/24/18 12:18 [facility] (Rec: 05/24/18 12:24 [facility] [id number]) Physical Therapy Treatment Other Treatments Other Treatment Performed edu on home safety and getting in and out of car M7 PT-IP Assessment and Plan Start: 05/21/18 16:18 Freq: NEEDED Status: Discharge Protocol: Document 05/24/18 12:18 [facility] (Rec: 05/24/18 12:24 [facility] [id number]) PT Summary Assessment and Plan Summary Assessment Summary Pt is cleared fro d/c home today. She achieved goals and did well with stairs after figuring out how to weight shift into LLE to lift RLE Recommendations To Nursing Amount of Assist Needed Standby Assistance Discharge Recommendations PT Discharge Recommendations Home with 24/7 Assist Outpatient PT Other Discharge Recommendations Home with 24 hour assist.
== END 2018-05-24 11:01 | disposition home or self-care (01) | DRG 470 ==
PROVIDERS: Admitting Provider Orthopaedic Surgery; Visit Provider Orthopaedic Surgery
PROC: 0SRD0JZ Replacement of Left Knee Joint with Synthetic Substitute, Open Approach (ICD-10-PCS; CPT 27447; principal; 2018-05-21 07:45)
DX: M17.12 Unilateral primary osteoarthritis, left knee (principal); Z96.651 Presence of right artificial knee joint; I10 Essential (primary) hypertension; Z87.891 Personal history of nicotine dependence; M11.80 Other specified crystal arthropathies, unspecified site
CPT/HCPCS: 36415; 73560; 85014; 85018; 97116; 97162; 97530; C1776; C9290; J0690; J1100; J1170; J2250; J2270; J2405; J2704; J3010